=== PATIENT | male | born 1990 | race Caucasian/White ===

== ENCOUNTER 2018-08-18 09:13 | Emergency (ER) | payer OTHER ==
--- NOTE | 2018-08-18 10:24 | ED PDOC ---
Arrival/HPI - General Chief Complaint: Lower Extremity Problem/Injury Time Seen by Provider: 08/18/18 09:32 Historian: Patient - History of Present Illness Narrative History of Present Illness (Text): 08/18/18 10:12 27yo male with no pmhx who present with complaint of painful wound to his right plantar foot. states he have had the wound now for over a year now, from the callous on his foot and became painful yesterday, after cutting the edges with a nail making machine setter. He denies discharge from the wound, fever, chills, nausea, vomiting, any other complaint. Past Medical History - Provider Review Nursing Documentation Reviewed: Yes - Infectious Disease Hx of Infectious Diseases: None - Psychiatric Hx Substance Use: No Family/Social History - Physician Review Nursing Documentation Reviewed: Yes Family/Social History: Unknown Family HX Smoking Status: Never Smoked Hx Alcohol Use: No Hx Substance Use: No Allergies/Home Meds Allergies/Adverse Reactions: Allergies No Known Allergies Allergy (Verified 08/18/18 09:30) Review of Systems - Physician Review All systems were reviewed & negative as marked: Yes - Review of Systems Constitutional: Normal Eyes: Normal ENT: Normal Respiratory: Normal Cardiovascular: Normal Gastrointestinal: Normal Genitourinary Male: Normal Musculoskeletal: Arthralgias (Right foot pain) Skin: Normal Neurological: Normal Endocrine: Normal Hemo/Lymphatic: Normal Psychiatric: Normal Physical Exam Vital Signs Reviewed: Yes Vital Signs Temp Pulse Resp BP Pulse Ox 08/18/18 09:39 146/77 08/18/18 09:22 97.6 F 77 18 151/105 H 99 Temperature: Afebrile Blood Pressure: Normal Pulse: Regular Respiratory Rate: Normal Appearance: Positive for: Well-Appearing, Non-Toxic, Comfortable Pain Distress: None Mental Status: Positive for: Alert and Oriented X 3 - Systems Exam Head: Present: Atraumatic, Normocephalic Pupils: Present: PERRL Extroacular Muscles: Present: EOMI Conjunctiva: Present: Normal Mouth: Present: Moist Mucous Membranes Neck: Present: Normal Range of Motion Respiratory/Chest: Present: Clear to Auscultation, Good Air Exchange. No: Respiratory Distress, Accessory Muscle Use Cardiovascular: Present: Regular Rate and Rhythm, Normal S1, S2. No: Murmurs Abdomen: No: Tenderness, Distention, Peritoneal Signs Back: Present: Normal Inspection Upper Extremity: Present: Normal Inspection. No: Cyanosis, Edema Lower Extremity: Present: Normal Inspection. No: Edema Neurological: Present: GCS=15, CN II-XII Intact, Speech Normal Skin: Present: Warm, Dry, Normal Color. No: Rashes Psychiatric: Present: Alert, Oriented x 3, Normal Insight, Normal Concentration Medical Decision Making ED Course and Treatment: 08/18/18 12:00 PT in ED for stated history. He was hemodynamically stable and ambulatory. Wound have clean edges with no discharge and no crepitus. Right foot xray was ordered to r/o osteo. Right foot xray - Negative Result was DW the pt and he was placed on prophylactic abx. Referred to a analyzer sales - RAD Interpretation Radiology Orders: 08/18/18 09:37 FOOT RIGHT 3 VIEWS ROUTINE [RAD] Stat Disposition/Present on Arrival - Present on Arrival Any Indicators Present on Arrival: No History of DVT/PE: No History of Uncontrolled Diabetes: No Urinary Catheter: No History of Decub. Ulcer: No History Surgical Site Infection Following: None - Disposition Have Diagnosis and Disposition been Completed?: Yes Diagnosis: Wound, open, foot Disposition: HOME/ ROUTINE Disposition Time: 11:25 Patient Plan: Discharge Patient Problems: Current Active Problems Problem Status Onset Wound, open, foot Acute Condition: STABLE Discharge Instructions (ExitCare): Toe Injury Additional Instructions: Follow up with your Dictating Machine Typist Return to ED for any new or worsening symptoms Prescriptions: Cephalexin [cephalexin] 500 mg PO TID #21 cap Referrals: Scott Dunn MD [Primary Care Provider] - Follow up with primary Scott Yepez DPM [Staff Provider] - Follow up with primary Forms: [employer] (N[place]ian)
--- NOTE | 2018-08-18 11:15 | RAD ---
Date of service: 08/18/2018 PROCEDURE: Right Foot Radiographs. HISTORY: foot pain COMPARISON: None. FINDINGS: BONES: Normal. No fracture. JOINTS: Normal. SOFT TISSUES: Normal. OTHER FINDINGS: None. IMPRESSION: Normal right foot radiographs.
[2018-08-18 11:47] VITALS: TEMP 98.1; O2SAT 100
[2018-08-18 12:02] VITALS: BP 127/82; PULSE 88; RESP 28
== END 2018-08-18 12:01 | disposition home or self-care (01) ==
LOC: ED 09:13
DX: S91.301A Unspecified open wound, right foot, initial encounter (principal); X58.XXXA Exposure to other specified factors, initial encounter

== ENCOUNTER 2018-08-29 17:19 | Outpatient (CLI) | payer OTHER | END 2018-08-29 17:20 | disposition home or self-care (01) | LOC: RAD 17:19 ==

== ENCOUNTER 2018-09-11 10:15 | Outpatient (CLI) | payer OTHER | END 2018-09-11 10:16 | disposition home or self-care (01) | LOC: RAD 10:15 ==